=== PATIENT | female | born 1990 | race Caucasian/White ===

== ENCOUNTER 2017-06-14 21:15 | Observation (INO) | payer BC ==
[2017-06-14 21:40] LABS: Urine Bilirubin Negative (NEGATIVE); Urine Blood Negative /ul (NEGATIVE); Urine Ketone 15 mg/dL (NEGATIVE); Urine Nitrite Negative (NEGATIVE); Urine Protein Negative (NEGATIVE); Urine Urobilinogen Normal (NORMAL)
[2017-06-14] MEDS ORDERED: NORMAL SALINE 1,000 ML IV PRN (21:44)
[2017-06-14] MEDS ORDERED: ONDANSETRON HCL/PF 2 MG/ML VIAL IV ONE (21:44)
[2017-06-14] MEDS ORDERED: KETOROLAC TROMETHAMINE 30 MG/ML VIAL IV ONE (21:45)
[2017-06-14 21:46] LABS: Hematocrit 41.1 % (37.0-47.0); Hemoglobin 14.5 gm/dL (12.5-16.0); Mean Cell Volume 84.2 fl (78-100); Mean Corpuscular Hemoglobin 29.7 pg (27-31); Mean Corpuscular Hgb Conc 35.3 g/dl (32-36); Mean Platelet Volume 12.4 fl (6.0-9.5); Neutrophil # 10.2 K/mm3 (1.3-6.0); Neutrophil % 87.2 % (42-75.0); Platelet Count 226 K/mm3 (150-450); Red Blood Count 4.88 M/mm3 (4.2-5.4); White Blood Count 11.7 K/mm3 (4.0-10.5)
--- NOTE | 2017-06-14 21:50 | ERNOTE ---
<Kimberly Nettles - Last Filed: 06/14/17 22:02> Abdominal HPI - Narrative Date of Service: 06/14/17 - General Chief Complaint: Abdominal Pain Time Seen by Provider: 06/14/17 21:33 Source: patient, family Exam Limitations: no limitations - Immun/Allergies/Home Medications Immunizatons: IMMUNIZATION HX Immunizations Up to Date Yes Allergies/Adverse Reactions: Allergies No Known Allergies Allergy (Unverified 06/14/17 21:22) Home Medications: HOME MEDICATIONS NK [No Home Medication] 06/14/17 [Last Taken Unknown] - History of Present Illness Narrative: States starting this morning she developed abdominal discomfort mainly on the right upper and lower quadrants. Describes as intermittent sharp pain with a constant aching pain. Has been nauseated earlier today but currently is ok. Has not had an appetite today. Admits periodic constipation but does not think she currently is. Mild dysuria. Denies any possibility of . Date (Duration): 06/14/17 Time (Timing): 08:00 Timing: getting worse Quality: moderate, sharpness, stabbing Activities at Onset: none Modifying Factors - (Improves): Present: rest Modifying Factors - (Worsens): Present: eating, movement, exercise Associated Symptoms: Present: fever/chills, nausea, loss of appetite Prior Abdominal Problems: Present: none Review of Systems - Review of Systems Constitutional: Present: See HPI ENT: Present: no symptoms reported Respiratory: Present: no symptoms reported Cardiology: Present: no symptoms reported Gastrointestinal/Abdominal: Present: nausea, abdominal pain, eating less, drinking less, other - As mentioned a constant right sided abdominal pain which has period sharp stabbing pains. Was nauseated earlier today with no vomiting. Currently pain has mildly improved but still present. Had BM earlier today and was partially hard and yet not difficult to go. Genitourinary: Present: dysuria, decreased urinary output Musculoskeletal: Present: other - Generalized body aches. Skin: Present: no symptoms reported Neurological: Present: no symptoms reported Hematologic/Lymphatic: Present: no symptoms reported Psych: Present: no symptoms reported - Patient's Past Medical History Patient History - Medical: No pertinent hx Patient History - Cardiac/Respiratory: No pertinent hx Patient History - Cancer: No Hx of Cancer Patient History - Surgical Procedures: No surgical history Patient History - Other: None LMP (females 10-50): last week - Social History Living Situations: home Psych History: No pertinent hx Smoking Status: Never smoker Alcohol Use: occasionally Drug Use: none - Immunizations Immunizations Up to Date: Yes Physical Exam - Physical Exam General Appearance: Present: wd/wn, alert, moderate distress Eye Exam: Normal inspection: bilateral, PERRL: bilateral, EOMI: bilateral Ears, Nose, Throat: Present: normal ENT inspection, normal pharynx Neck: Present: normal inspection, nontender, full range of motion Respiratory: Present: no respiratory distress, normal breath sounds, no accessory muscle use, chest nontender, lungs clear Cardiovascular/Chest: Present: regular rate, rhythm, no murmur, normal peripheral pulses Peripheral Pulses: N=norm/S=strong/W=weak/B=bound/A=absent: Radial (R): Normal, Radial (L): Normal Gastrointestinal/Abdominal: Present: other - Patient has guarding of RLQ with rebound present. Obturator sign positive. BS are hyperactive No masses palpated. No distention. Back Exam: Present: no CVA tenderness, no vertebral tenderness Extremity Exam: Present: non-tender, normal range of motion, no edema Neurological Exam: Present: alert, oriented, no motor/sensory deficits Skin Exam: Present: normal color, warm/dry ED Progress - Results and Orders Patient's Lab Results:: I have reviewed the patient's lab results. - Vital Signs Patient's Vital Signs:: I have reviewed the patient's vital signs. Vital Signs: Vital Signs 06/14/17 21:18 Temperature 37.1 C Pulse Rate 131 H Respiratory 16 Rate Blood Pressure 134/72 O2 Sat by Pulse 98 Oximetry - Progress/Reassessment Chief Complaint: Abdominal Pain - Transfer of Care Physician Sign Out: Kimberly Nettles Receiving Physician: Bryce Villa Pending Results: CT/MRI results Expected Disposition: Discharge Departure Clinical Impression: Abdominal pain Qualifiers: Abdominal location: right lower quadrant Qualified Code(s): R10.31 - Right lower quadrant pain Appendicitis Qualifiers: Appendicitis type: acute appendicitis Acute appendicitis type: with localized peritonitis Qualified Code(s): K35.3 - Acute appendicitis with localized peritonitis - Departure Disposition: Still a patient Condition: Good <Bryce Villa - Last Filed: 06/15/17 01:16> Abdominal HPI - Immun/Allergies/Home Medications Immunizatons: IMMUNIZATION HX Immunizations Up to Date Yes ED Progress - Results and Orders Patient's Lab Results:: I have reviewed the patient's lab results. - Vital Signs Patient's Vital Signs:: I have reviewed the patient's vital signs. Vital Signs: Vital Signs 06/14/17 06/14/17 06/14/17 21:18 22:04 22:53 Temperature 37.1 C 37.2 C 36.9 C Pulse Rate 131 H 109 H 98 Respiratory 16 16 16 Rate Blood Pressure 134/72 124/71 119/75 O2 Sat by Pulse 98 98 98 Oximetry 06/14/17 06/15/17 23:25 00:29 Temperature 36.9 C Pulse Rate 104 H 94 Respiratory 16 16 Rate Blood Pressure 124/76 116/72 O2 Sat by Pulse 98 98 Oximetry - CT/Ultrasound CT/Ultrasound Narrative: CT abd/pelvis: 2 cm subplural RLL nodule. 4 mm low attenuating lesion in the left hepatic lobe possibly hemangioma appendix is dilated with wall thickening and adjacent inflammation consistent with acute appendicitis 4 cm right adnexal cyst and 17 mm left adnexal cyst. otherwise normal. - Progress/Reassessment Progress Note-Subjective: 06/15/17 00:55 Spoke with the patient and family, discussed CT results positive for appendicitis. Spoke with Dr. Elliott and he agrees with admit.
[2017-06-14 21:52] LABS: Albumin * 4.4 gm/dl (3.4-5.0); Anion Gap 14.9 mmol/L (6.8-13.8); BUN/Creatinine Ratio 11.4 (9.0-21.6); Bilirubin, Total 1.3 mg/dL (0.0-1.1); Ca. Corrected For Albumin 8.7 mg/dL (8.4-10.2); Calcium * 9.3 mg/dL (7.9-10.9); Carbon Dioxide 25.6 mmol/L (24-32.6); Potassium 3.5 mmol/L (3.4-4.6); Total Protein 8.4 gm/dL (6.2-8.2)
[2017-06-14 21:55] LABS: Urine Appearance Cloudy (CLEAR); Urine Bacteria 1+; Urine Color Yellow; Urine RBC None Seen /hpf (0-5); Urine WBC None Seen /hpf (0-5)
[2017-06-14 21:56] LABS: Amylase * 52 U/L (25-115); Lipase 92 U/L (73-393)
[2017-06-14] MEDS ORDERED: ONDANSETRON HCL/PF 2 MG/ML VIAL ONE (21:56)
[2017-06-14] MEDS ORDERED: KETOROLAC TROMETHAMINE 30 MG/ML VIAL ONE (21:59)
[2017-06-14] MEDS ORDERED: DIATRIZOATE MEGLUMINE, SODIUM 30 ML BTL PO ONE (22:10)
[2017-06-14] MEDS ORDERED: DIATRIZOATE MEGLUMINE, SODIUM 30 ML BTL ONE (22:12)
[2017-06-15] MEDS ORDERED: LEVOFLOXACIN IN DEXTROSE 5 % 750 MG/150 ML BAG IV ONE (00:57)
[2017-06-15] MEDS: RINGER'S SOLUTION,LACTATED 1,000 ML IV PRN ×2 (01:03→10:13)
[2017-06-15] MEDS ORDERED: MORPHINE SULFATE 4 MG/ML SYRG IV PRN (01:09)
[2017-06-15] MEDS ORDERED: ONDANSETRON HCL/PF 2 MG/ML VIAL IV PRN (01:10)
[2017-06-15] MEDS: metroNIDAZOLE/SODIUM CHLORIDE 500 MG/100 ML BAG IV SCH ×3 (02:39→17:05)
[2017-06-15] MEDS ORDERED: MORPHINE SULFATE 2 MG/ML DISP.SYRIN IV PRN (06:21)
--- NOTE | 2017-06-15 11:00 | HP ---
Chief Complaint - Chief Complaint Date of Service: 06/15/17 Time of Service: 10:56 Chief Complaint: RLQ abdominal pain History of Present Illness: Pt had the onset of right sided abdominal pain that his localized to the RLQ. WBC is 11K and CT is c/w acute nonperforated appendicitis. She is admitted for IV hydration, antibiotics, and laparoscopic appendectomy. - Patient's Past Medical History Patient History - Medical: No pertinent hx Patient History - Cardiac/Respiratory: No pertinent hx Patient History - Cancer: No Hx of Cancer Patient History - Surgical Procedures: No surgical history Patient History - Other: None LMP (females 10-50): 3 weeks - Family History Mother Family History - Medical: No pertinent hx Father Family History - Medical: No pertinent hx - Social History Living Situations: alone Abuse History: No History of abuse Psych History: No pertinent hx Smoking Status: Never smoker Have you smoked in the past 12 months: No Alcohol Use: occasionally Drug Use: none - Immunizations Immunizations Up to Date: Yes Review Of Systems (GEN) - Review of Systems Abdominal: Present: Abdominal Pain Misc: All systems neg except as marked Allergies/Adverse Reactions: Allergies Allergy/AdvReac Type Severity Reaction Status Date / Time No Known Allergies Allergy Verified 06/15/17 01:30 Home Medications: HOME MEDICATIONS NK [No Home Medication] 06/14/17 [Last Taken Unknown] Exam - Exam Vital Signs: Vital Signs - Last Taken Temp 36.8 C 06/15/17 07:56 Pulse 114 H 06/15/17 07:56 Resp 16 06/15/17 07:56 BP 100/58 06/15/17 07:56 Pulse Ox 99 06/15/17 07:56 Constitutional: Present: Alert, Oriented x3, Cooperative, Well developed, Well nourished, No distress ENT Exam: Present: normal ENT inspection, hearing grossly normal Eye Exam: bilateral eye: normal inspection Neck: Present: supple, trachea midline. Absent: lymphadenopathy (R), lymphadenopathy (L) Respiratory: Present: normal breath sounds, no respiratory distress, no accessory muscle use Cardiovascular/Chest: Present: regular rate, rhythm, no murmur Abdomen: Present: tender - RLQ Skin Exam: Present: normal color, warm/dry Neurologic: Present: no motor/sensory deficits Eye contact: Present: cooperative, good eye contact Thoughts: Present: normal thought pattern Diagnostic Studies: Laboratory Results WBC 11.7 K/mm3 (4.0-10.5) H 06/14/17 21:35 RBC 4.88 M/mm3 (4.2-5.4) 06/14/17 21:35 Hgb 14.5 gm/dL (12.5-16.0) 06/14/17 21:35 Hct 41.1 % (37.0-47.0) 06/14/17 21:35 MCV 84.2 fl (78-100) 06/14/17 21:35 MCH 29.7 pg (27-31) 06/14/17 21:35 MCHC 35.3 g/dl (32-36) 06/14/17 21:35 RDW 13.0 % (11.5-14.0) 06/14/17 21:35 Plt Count 226 K/mm3 (150-450) 06/14/17 21:35 MPV 12.4 fl (6.0-9.5) H 06/14/17 21:35 Immature Gran % (Auto) 0.30 % (0.001-0.429) 06/14/17 21:35 Immature Gran # (Auto) 0.03 K/mm3 (0.000-0.0310) 06/14/17 21:35 Neutrophils % 87.2 % (42-75.0) H 06/14/17 21:35 Lymphocytes % 6.5 % (20-51) L 06/14/17 21:35 Monocytes % 5.3 % (0.0-9) 06/14/17 21:35 Eosinophils % 0.5 % (0.0-3.0) 06/14/17 21:35 Basophils % 0.2 % (0.0-1.0) 06/14/17 21:35 Nucleated RBC % 0.0 k/mm3 (0-1) 06/14/17 21:35 Neutrophils # 10.2 K/mm3 (1.3-6.0) H 06/14/17 21:35 Lymphocytes # 0.76 k/mm3 (1.5-3.5) L 06/14/17 21:35 Monocytes # 0.6 k/mm3 (0.0-1.0) 06/14/17 21:35 Eosinophils # 0.1 k/mm3 (0.0-0.7) 06/14/17 21:35 Absolute Basophils 0.0 k/mm3 (0.0-0.1) 06/14/17 21:35 Sodium 139 mmol/L (132-142) 06/14/17 21:35 Plasma Sodium 139 mmol/L (130-142) 06/14/17 21:35 Potassium 3.5 mmol/L (3.4-4.6) 06/14/17 21:35 Chloride 102 mmol/L (97-106) 06/14/17 21:35 Carbon Dioxide 25.6 mmol/L (24-32.6) 06/14/17 21:35 Anion Gap 14.9 mmol/L (6.8-13.8) H 06/14/17 21:35 BUN 10 mg/dL (3-23) 06/14/17 21:35 Creatinine 0.88 mg/dL (0.4-1.4) 06/14/17 21:35 Est GFR (Non-Af Amer) 83 mL/min (60-130) 06/14/17 21:35 BUN/Creatinine Ratio 11.4 (9.0-21.6) 06/14/17 21:35 Random Glucose 111 mg/dL (70-110) H 06/14/17 21:35 Calcium 9.3 mg/dL (7.9-10.9) 06/14/17 21:35 Calcium Adj for Albumin 8.7 mg/dL (8.4-10.2) 06/14/17 21:35 Total Bilirubin 1.3 mg/dL (0.0-1.1) H 06/14/17 21:35 AST 11 U/L (0-48) 06/14/17 21:35 ALT 19 U/L (19-67) 06/14/17 21:35 Alkaline Phosphatase 67 U/L (50-170) 06/14/17 21:35 Total Protein 8.4 gm/dL (6.2-8.2) H 06/14/17 21:35 Albumin 4.4 gm/dl (3.4-5.0) 06/14/17 21:35 Amylase 52 U/L (25-115) 06/14/17 21:44 Lipase 92 U/L (73-393) 06/14/17 21:44 Urine Color Yellow 06/14/17 21:35 Urine Appearance Cloudy (CLEAR) 06/14/17 21:35 Urine pH 7.0 pH (5.0-7.0) 06/14/17 21:35 Ur Specific [place] 1.020 SP.GR. (1.005-1.010) 06/14/17 21:35 Urine Protein Negative mg/dL (NEGATIVE) 06/14/17 21:35 Urine Glucose (UA) Negative mg/dL (NEGATIVE) 06/14/17 21:35 Urine Ketones 15 mg/dL (NEGATIVE) 06/14/17 21:35 Urine Blood Negative /ul (NEGATIVE) 06/14/17 21:35 Urine Nitrate Negative (NEGATIVE) 06/14/17 21:35 Urine Bilirubin Negative mg/dl (NEGATIVE) 06/14/17 21:35 Urine Urobilinogen Normal EU/dl (NORMAL) 06/14/17 21:35 Ur Leukocyte Esterase Negative /ul (NEGATIVE) 06/14/17 21:35 Urine RBC None seen /hpf (0-5) 06/14/17 21:35 Urine WBC None seen /hpf (0-5) 06/14/17 21:35 Ur Epithelial Cells 0-5 /hpf (0-5) 06/14/17 21:35 Urine Bacteria 1+ (NONE) H 06/14/17 21:35 Urine Culture Comments No culture indicated 06/14/17 21:35 Urine HCG, Qual Negative (NEGATIVE) 06/14/17 21:35 Assessment/Plan - Assessment/Plan (1) Acute appendicitis with localized peritonitis Assessment: I recommend laparoscopic appendectomy. The options, risks, and benefits were reviewed fully. She seems to understand, asks appropriate questions, and desires to proceed. Problem: Acute
[2017-06-15] MEDS ORDERED: RINGER'S SOLUTION,LACTATED 1,000 ML IV ONE ×2 (15:20→15:35)
[2017-06-15] MEDS ORDERED: BUPIVACAINE HCL/EPINEPHRINE 50 ML VIAL IJ ONE (15:40)
[2017-06-15] MEDS ORDERED: RINGER'S SOLUTION,LACTATED 1,000 ML IV PRN (16:35)
--- NOTE | 2017-06-15 16:35 | OR ---
Operative Report - Dictated Report Narrative: Date: 06/15/2017 Preoperative diagnosis: Nonperforated acute appendicitis Postoperative diagnosis: Same Procedure: Laparoscopic appendectomy Staff surgeon: Taj Elliott MD Anesthesia: GET EBL: 10cc Specimen: appendix Description of procedure: Following the smooth induction of general endotracheal anesthesia a Ann catheter was inserted and SCD boots applied. The abdomen was then prepped and draped in a sterile fashion. All port sites were anesthetized with Marcaine prior to incision. A 5 mm infraumbilical incision was carried out and blunt dissection was taken down to the abdominal wall appropriately and towel clip was placed through the umbilical raphae for countertraction and the abdomen was entered under direct vision with the 5 mm blunt port with the scope within the lumen of the trocar. Under direct vision 12 mm suprapubic blunt port and left lower quadrant 5 mm blunt port were inserted. There is a minor amount of reactive fluid in the pelvis that was evacuated. No purulence was encountered. The appendix was grasped and elevated. The mesoappendix was then taken down in continuity with an ultrasonic dissector. The appendix was then transected at its base flush with the cecum using an Endo DESTINY stapler. The appendix was placed in an Endo Catch bag and delivered out through the suprapubic port. Inspection was carried out. Hemostasis appeared to be adequate. The pneumoperitoneum was evacuated. The ports were removed. The incisions were closed with subcuticular stitches of 4-0 Vicryl and sealed with Dermabond. Patient tolerated the procedure well without any apparent complications and was discharged from the operating room in stable condition.
--- NOTE | 2017-06-15 17:41 | DS ---
(1) Acute appendicitis with localized peritonitis Problem: Resolved Description of Stay: patient was admitted for hydration, antibiotics, and pain management. She underwent same Day laparoscopic appendectomy. She tolerated the procedure well and was discharged to home in improved condition without apparent Complications. Procedures Performed: see notes below List Procedures: Laparoscopic appendectomy Discharge Location: Home Disposition: Home self-care Condition: Good Discharge Activity: No Lifting - No > 20 lb x 2 weeks Discharge Diet: General/regular food Referrals: Kaila Mack MD [Primary Care Provider] - Complete Home Medications List: Complete Home Medication List: NK [No Home Medication] 06/14/17
[2017-06-15] MEDS: oxyCODONE HCL/ACETAMINOPHEN 1 TAB TABLET PO PRN ×2 (18:02→22:02)
[2017-06-16 00:01] VITALS: BP 113/68
== END 2017-06-15 22:10 | disposition home or self-care (01) ==
LOC: ER 21:15 → MS 06-15 00:55
PROVIDERS: ADMIT Specialist; ATTEND Specialist
PROC: 0DTJ4ZZ Resection of Appendix, Percutaneous Endoscopic Approach (ICD-10-PCS; principal; 2017-06-15)
DX: K35.3 Acute appendicitis with localized peritonitis
CPT/HCPCS: 36415; 44970; 74177; 80053; 81001; 82150; 83690; 84703; 85025; 88304; 96365; 96366; 96367; 96375; 99284; G0378; J2405